=== PATIENT | female | born 1985 | race Caucasian/White ===

== ENCOUNTER 2022-06-18 19:59 | Emergency (ER) | payer MEDICAID ==
[2022-06-18] MEDS ORDERED: Sodium Chloride 0.9% 10 ML Syringe FLUSH PRN (23:28)
[2022-06-18] MEDS ORDERED: Sodium Chloride 0.9% 2.5 ML Syringe FLUSH PRN (23:28)
[2022-06-18] MEDS ORDERED: Morphine 4 MG/ML VIAL IVPUSH ONE (23:28)
[2022-06-18] MEDS ORDERED: Dexamethasone 10 MG/ML SDV IVPUSH ONE (23:28)
[2022-06-18] MEDS ORDERED: Ondansetron 4 MG/2 ML SDV IVPUSH ONE (23:28)
[2022-06-18] MEDS ORDERED: Clindamycin Phosphate in D5W 600 MG in Premix Bag 1 BAG IV ONE ×2 (23:28)
[2022-06-19 00:44] LABS: CARBON DIOXIDE,CO2 27.8 mmol/L (21.0-32.0); POTASSIUM,K 3.8 mmol/L (3.5-5.1)
[2022-06-19] MEDS ORDERED: Iopamidol 755 MG/ML 500 ML Multipack Bottle IVPUSH STA (01:58)
== END 2022-06-19 03:29 | disposition home or self-care (01) ==
LOC: MW.ED 19:59
DX: K04.7 Periapical abscess without sinus (principal); Z88.0 Allergy status to penicillin; Z88.1 Allergy status to other antibiotic agents
CPT/HCPCS: 36415; 70487; 80053; 81025; 85025; 96374; 96375; 99283; J1100; J2270; J2405; J3490; Q9967

== ENCOUNTER 2022-12-01 19:47 | Emergency (ER) | payer MEDICAID ==
[2022-12-01] MEDS ORDERED: Meclizine 25 MG Tab PO ONE (20:06)
[2022-12-01 20:44] LABS: CORONAVIRUS COVID-19 NAA NEGATIVE (NEGATIVE); INFLUENZA A NAA NEGATIVE (NEGATIVE); INFLUENZA B NAA NEGATIVE (NEGATIVE); RESPIRATORY SYNCYTIAL VIR NAA NEGATIVE (NEGATIVE)
== END 2022-12-01 21:01 | disposition home or self-care (01) ==
LOC: MW.ED 19:47
DX: J40 Bronchitis, not specified as acute or chronic (principal); F17.210 Nicotine dependence, cigarettes, uncomplicated; Z88.0 Allergy status to penicillin; Z88.1 Allergy status to other antibiotic agents; Z20.822 Contact with and (suspected) exposure to COVID-19
CPT/HCPCS: 0241U; 71045; 99284; A9270

== ENCOUNTER 2023-01-02 08:10 | Emergency (ER) | payer MEDICAID ==
[2023-01-02] MEDS ORDERED: Lidocaine 5% 700 MG Patch TOP STA (08:38)
[2023-01-02] MEDS ORDERED: Ibuprofen 400 MG Tab PO ONE (08:38)
[2023-01-02] MEDS ORDERED: Acetaminophen 325 MG Tab PO ONE (08:38)
[2023-01-02 10:07] LABS: CARBON DIOXIDE,CO2 27.6 mmol/L (21.0-32.0)
== END 2023-01-02 14:35 | disposition home or self-care (01) ==
LOC: MW.ED 08:10
DX: S79.912A Unspecified injury of left hip, initial encounter (principal); Z88.0 Allergy status to penicillin; Z88.1 Allergy status to other antibiotic agents
CPT/HCPCS: 36415; 73700; 73721; 80053; 84703; 99284; A9270

== ENCOUNTER 2023-01-29 09:37 | Emergency (ER) | payer MEDICAID | END 2023-01-29 10:21 | disposition home or self-care (01) | LOC: MW.ED 09:37 | DX: Z00.8 Encounter for other general examination (principal); Z88.0 Allergy status to penicillin; Z88.1 Allergy status to other antibiotic agents; Z72.0 Tobacco use | CPT/HCPCS: 99283 ==

== ENCOUNTER 2023-03-11 13:54 | Emergency (ER) | payer MEDICAID ==
[2023-03-11] MEDS ORDERED: Meclizine 25 MG Tab PO ONE (16:12)
== END 2023-03-11 17:55 | disposition left against medical advice (07) ==
LOC: MW.ED 13:54
DX: R42 Dizziness and giddiness (principal); Z88.1 Allergy status to other antibiotic agents; Z88.0 Allergy status to penicillin
CPT/HCPCS: 99283; A9270

== ENCOUNTER 2023-11-09 17:45 | Emergency (ER) | payer MEDICAID | END 2023-11-09 20:21 | disposition home or self-care (01) | LOC: MW.ED 17:45 | DX: K04.7 Periapical abscess without sinus (principal); R05.9 Cough, unspecified; Z88.0 Allergy status to penicillin; Z88.1 Allergy status to other antibiotic agents | CPT/HCPCS: 71045; 71045-26; 99283 ==

== ENCOUNTER 2024-02-06 04:20 | Emergency (ER) | payer SELFPAY ==
[2024-02-06] MEDS: Ibuprofen 600 MG Tab PO ONE (04:36)
[2024-02-06 05:14] LABS: CORONAVIRUS COVID-19 NAA NEGATIVE (NEGATIVE); INFLUENZA A NAA NEGATIVE (NEGATIVE); INFLUENZA B NAA NEGATIVE (NEGATIVE)
== END 2024-02-06 05:25 | disposition home or self-care (01) ==
LOC: MW.ED 04:20
DX: R05.9 Cough, unspecified (principal); Z88.0 Allergy status to penicillin; Z88.1 Allergy status to other antibiotic agents
CPT/HCPCS: 0240U; 71045; 99283; A9270